=== PATIENT | female | born 1965 | race Caucasian/White ===

== ENCOUNTER 2024-11-01 17:15 | Emergency (ER) | payer OTHER ==
[~2024-11-01] VITALS: Ht 162.6 cm; Wt 61.2 kg
[2024-11-01] MEDS ORDERED: MECLIZINE HCL 25 MG TABLET ONE (18:11)
[2024-11-01] MEDS: MECLIZINE HCL 25 MG TABLET PO ONE (18:16)
[2024-11-01] MEDS ORDERED: MECL-159 PO (19:02)
[2024-11-01] MEDS ORDERED: AMOX-430 PO (19:06)
[2024-11-01 19:11] VITALS: BP 128/78; TEMP 98.6; O2SAT 98
== END 2024-11-01 19:11 | disposition home or self-care (01) ==
LOC: ER 17:24
DX: R42 Dizziness and giddiness (principal); H60.391 Other infective otitis externa, right ear; E03.9 Hypothyroidism, unspecified; Z79.2 Long term (current) use of antibiotics; Z79.890 Hormone replacement therapy; Z88.0 Allergy status to penicillin; Z88.1 Allergy status to other antibiotic agents
CPT/HCPCS: 99282; J8597